=== PATIENT | female | born 1965 | race Two or more races ===

== ENCOUNTER 2023-05-06 23:48 | Emergency (ER) | payer OTHER ==
[~2023-05-06] VITALS: Ht 157.5 cm; Wt 75.0 kg
[2023-05-07 00:06] VITALS: BP 179/111; PULSE 78; RESP 15; TEMP 98; O2SAT 96
[2023-05-07] MEDS ORDERED: BACITRACIN TOP OINT 1 UD PKG TOP ONE (02:30)
[2023-05-07] MEDS ORDERED: CEPH500C PO (02:36)
[2023-05-07] MEDS ORDERED: IBUP-1456 PO (02:36)
[2023-05-07] MEDS ORDERED: ONDANSETRON ODT 4 MG TAB PO ONE (02:45)
[2023-05-07] MEDS ORDERED: TETANUS-DIPTH-ACEL PERTUSSIS 0.5ML SYR Tdap IM ONE (02:45)
[2023-05-07] MEDS ORDERED: HYDROcodone-ACET 5/325MG TAB PO ONE (02:45)
[2023-05-07] MEDS ORDERED: BACIOIN15 TOP (02:57)
== END 2023-05-07 03:12 | disposition home or self-care (01) ==
LOC: ER 23:48
DX: S62.521A Displaced fracture of distal phalanx of right thumb, initial encounter for closed fracture (principal); S01.01XA Laceration without foreign body of scalp, initial encounter; S61.101A Unspecified open wound of right thumb with damage to nail, initial encounter; E11.9 Type 2 diabetes mellitus without complications; Z98.890 Other specified postprocedural states; Z79.899 Other long term (current) drug therapy; W22.8XXA Striking against or struck by other objects, initial encounter; Y93.89 Activity, other specified; Y92.89 Other specified places as the place of occurrence of the external cause; Y99.8 Other external cause status
CPT/HCPCS: 12002; 29125; 70450; 73140; 82962; 99284; Q0162